=== PATIENT | female | born 1965 | race Caucasian/White ===

== ENCOUNTER 2018-06-01 14:16 | Emergency (ER) | payer MEDICARE, MEDICAID ==
[2018-06-01] MEDS ORDERED: triamcinolone acetonide 40mg/ml inj IM ONE (16:20)
[2018-06-01] MEDS ORDERED: diphenhydrAMINE 25mg capsule PO ONE (16:20)
== END 2018-06-01 16:42 | disposition home or self-care (01) ==
LOC: ER 14:17
DX: L23.9 Allergic contact dermatitis, unspecified cause (principal)
CPT/HCPCS: 96372; 99283; J3301; Q0163